=== PATIENT | male | born 1985 | race Caucasian/White ===

== ENCOUNTER 2017-10-07 09:01 | Emergency (ER) | payer OTHER ==
[~2017-10-07] VITALS: Ht 185.4 cm; Wt 141.0 kg
[~2017-10-07 09:01] MED LIST: HYDR-971 PO; IBUP800T19 PO
--- NOTE | 2017-10-07 09:58 | RAD ---
4 view right knee and two-view right hip dated 10/07/2017. No comparison available. CLINICAL INDICATION: Pain after injury. FINDINGS: Two-view right hip show normal bony alignment. No displaced fracture. Mild hypertrophic change of the right hip joint. No periostitis or bone destruction. 4 view right knee show mild tricompartmental hypertrophic change. Radiolucency of the proximal tibia and distal femur consistent with prior ACL graft repair.. There is a small metallic linear density within the soft tissues anterior medially that likely represents a retained foreign body. No periostitis or bone destruction. No definite joint effusion or loose body. IMPRESSION: 1. No acute radiographic abnormality right hip or right knee. 2. Mild degenerative changes as described. Evidence of prior ACL graft repair. 3. Small linear metallic foreign body at the anterior medial soft tissues of the knee. This could be acute or chronic. Correlate clinically. Electronically signed by: Bolivar Cruz MD (10/07/2017 9:55 AM) [facility]
[2017-10-07] MEDS ORDERED: TRAM-48 PO (10:10)
[2017-10-07] MEDS ORDERED: IBUP800T19 PO (10:10)
--- NOTE | 2017-10-07 10:11 | PHYS DOC ---
Past History Past Medical History: No Pertinent History Past Surgical History: No Surgical History Smoking: Non-smoker Alcohol Use: Occasionally Drug Use: None Adult General Chief Complaint Chief Complaint: KNEE INJURY HPI HPI Patient is a 32 year old male who presents with complaining of pain in his knee. Patient states he had an accidental fall from his truck bed that was about 3-4 feet high and landed on his right hip yesterday. Patient states he had history of right ACL repair bout 10 years ago and he felt pain in his knees after the injury yesterday without having direct injury to his knee. Patient rated his pain 7/10 and denies focal neuro deficit, loss of consciousness, fever and chills, nausea and vomiting. Review of Systems Review of Systems Constitutional: Denies fever or chills [] Eyes: Denies change in visual acuity, redness, or eye pain [] HENT: Denies nasal congestion or sore throat [] Respiratory: Denies cough or shortness of breath [] Cardiovascular: No additional information not addressed in HPI [] GI: Denies abdominal pain, nausea, vomiting, bloody stools or diarrhea [] : Denies dysuria or hematuria [] Musculoskeletal: Denies back pain, reports joint pain [] Integument: Denies rash or skin lesions [] Neurologic: Denies headache, focal weakness or sensory changes [] Endocrine: Denies polyuria or polydipsia [] All other systems were reviewed and found to be within normal limits, except as documented in this note. Allergies Allergies Allergies Coded Allergies Type Severity Reaction Last Updated Verified No Known Drug Allergies 10/07/17 No Physical Exam Physical Exam Constitutional: Well developed, well nourished, mild distress, non-toxic appearance. [] HENT: Normocephalic, atraumatic Eyes: PERRLA, EOMI, conjunctiva normal, no discharge. [] Neck: Normal range of motion, no tenderness, supple, no stridor. [] Cardiovascular:Heart rate regular rhythm, no murmur [] Lungs & Thorax: Bilateral breath sounds clear to auscultation [] Skin: Warm, dry, no erythema, no rash. [] Back: No tenderness, no CVA tenderness. [] Extremities: Right hip without deformity or focal tenderness or limited range of motion, right knee with mild edema and painful range of motion without ecchymoses or sign of injury or deformity, no neurovascular deficit. Neurologic: Alert and oriented X 3, normal motor function, normal sensory function, no focal deficits noted. [] Psychologic: Affect normal, judgement normal, mood normal. [] Current Patient Data Vital Signs Vital Signs Date Time Temp Pulse Resp B/P (MAP) Pulse Ox O2 Delivery O2 Flow Rate FiO2 10/07/17 09:01 98.2 70 18 94 Room Air EKG EKG [] Radiology/Procedures Radiology/Procedures [address] [address] IMAGING REPORT Signed PATIENT: TANVI RUIZ ACCOUNT: [id number] : 1985 LOCATION: ER AGE: 32 SEX: M EXAM STATUS: REG ER ORD. PHYSICIAN: LOUIS OSORIO MD REASON: injury PROCEDURE: HIP RIGHT 2 VIEW 4 view right knee and two-view right hip dated 10/07/2017. No comparison available. CLINICAL INDICATION: Pain after injury. FINDINGS: Two-view right hip show normal bony alignment. No displaced fracture. Mild hypertrophic change of the right hip joint. No periostitis or bone destruction. 4 view right knee show mild tricompartmental hypertrophic change. Radiolucency of the proximal tibia and distal femur consistent with prior ACL graft repair.. There is a small metallic linear density within the soft tissues anterior medially that likely represents a retained foreign body. No periostitis or bone destruction. No definite joint effusion or loose body. IMPRESSION: 1. No acute radiographic abnormality right hip or right knee. 2. Mild degenerative changes as described. Evidence of prior ACL graft repair. 3. Small linear metallic foreign body at the anterior medial soft tissues of the knee. This could be acute or chronic. Correlate clinically. Electronically signed by: Bolivar Cruz MD (10/07/2017 9:55 AM) [facility] DICTATED AND SIGNED BY: BOLIVAR CRUZ MD DATE: 10/07/17 0953 CC: LOUIS OSORIO MD; ANDRZEJ TAN ~ Course & Med Decision Making Course & Med Decision Making Pertinent Imaging studies reviewed. (See chart for details) Evaluation of patient in ER showed 31-year-old male patient with complaining of right knee and hip injury with mild edema and painful range of motion and x-ray was unremarkable. Patient did not want to have pain medication in ER. Knee immobilizer was applied and patient instructed to use his home crutches up with his primary care physician for possible MRI if not getting better. Dragon Disclaimer Dragon Disclaimer This electronic medical record was generated, in whole or in part, using a voice recognition dictation system. Departure Departure: Impression: Primary Impression: Strain of right knee Additional Impression: Strain of right hip Disposition: HOME, SELF-CARE (@1008) Condition: STABLE Referrals: ANDRZEJ TAN (PCP) Patient Instructions: Hip Injury, Knee Sprain Additional Instructions: Apply ice on the affected area Follow-up with your primary care physician in 3-5 days Return to ER if not getting better Use your home crutches Scripts Tramadol Hcl (ULTRAM) 50 Mg Tablet 50 MG PO PRN Q6HRS PRN for PAIN, #14 TAB Prov: LUOIS OSORIO MD 10/07/17 Ibuprofen (IBUPROFEN) 800 Mg Tablet 1 TAB PO TID, #30 TAB Prov: LOUIS OSORIO MD 10/07/17 Problem Qualifiers LOUIS OSORIO MD Oct 07, 2017 10:11
[2017-10-07 10:22] VITALS: BP 149/77
== END 2017-10-07 10:22 | disposition home or self-care (01) ==
LOC: ER 09:01
DX: S86.811A Strain of other muscle(s) and tendon(s) at lower leg level, right leg, initial encounter (principal); S76.011A Strain of muscle, fascia and tendon of right hip, initial encounter; W06.XXXA Fall from bed, initial encounter; Y93.89 Activity, other specified; Y92.89 Other specified places as the place of occurrence of the external cause; Y99.8 Other external cause status
CPT/HCPCS: 29505; 73502; 73564; 99284